=== PATIENT | female | born 1960 | race Caucasian/White ===

== ENCOUNTER 2017-01-29 12:50 | Outpatient (CLI) | payer BC | END 2017-01-29 19:43 | disposition home or self-care (01) | LOC: SMA 12:50 | PROVIDERS: ATTEND Family Medicine | DX: Z12.31 Encounter for screening mammogram for malignant neoplasm of breast (principal) | CPT/HCPCS: G0202 ==

== ENCOUNTER 2018-02-17 10:05 | Outpatient (CLI) | payer SELFPAY | END 2018-02-17 20:23 | disposition home or self-care (01) | LOC: SMA 10:05 | PROVIDERS: ATTEND Family Medicine | DX: Z12.31 Encounter for screening mammogram for malignant neoplasm of breast (principal) | CPT/HCPCS: 77067 ==